=== PATIENT | male | born 1970 | race African-American/Black ===

== ENCOUNTER 2020-10-16 14:14 | Observation (INO) | payer OTHER ==
--- OUTSIDE RECORDS SUMMARY | 2020-10-16 14:20 | XMS REPORT | Continuity of Care Document ---
:1970 Author Organization [facility] t Address [address] [place] [address] Care Team Providers Name Role Phone Unavailable Unavailable Unavailable Payers Payer Name Policy Type Policy Number Effective Date Expiration Date S ource Problems This patient has no known problems. Allergies, Adverse Reactions, Alerts This patient has no known allergies or adverse reactions. Medications This patient has no known medications. Procedures This patient has no known procedures. Results This patient has no known results.
[2020-10-16 14:42] LABS: Arterial Blood Carboxyhemoglob 1.2 % (0-1.5); Blood Gas Oxyhemoglobin 91.5 % (94-97); Blood O2 Saturation 94.3 % (92-98.5)
[2020-10-16 14:50] LABS: Absolute Lymphocytes (CBC) 2.6 K/uL (0.7-4.9); Basophils % 1.3 % (0-1.3); Hematocrit 41.6 % (39.6-49.0); Lymphocytes % 26.5 % (15.3-44.8); MPV 10.3 fL (7.6-11.3); RBC Red Blood Cell Count 4.98 M/uL (4.33-5.43)
[2020-10-16] MEDS ORDERED: NA CHLORIDE 0.9% 1,000 ML ONE ×3 (15:04→18:27)
[2020-10-16 15:17] LABS: BUN Blood Urea Nitrogen 39 mg/dL (7-18); Bicarbonate 20 mmol/L (21-32); Potassium 4.4 mmol/L (3.5-5.1); Sodium Level 129 mmol/L (136-145)
[2020-10-16 15:18] LABS: Glucose Level 422 mg/dL (74-106)
--- NOTE | 2020-10-16 15:30 | EDPHYS ---
Physician Documentation [facility] Name: Gavin Lu Age: 49 yrs Sex: Male : 1970 Arrival Date: 10/16/2020 Time: 14:16 Bed 26 Private MD: ED Physician Casa Rodriguez HPI: 10/16 16:27 This 49 yrs old Black Male presents to ER via Ambulatory with complaints of Abnormal kb Lab Results. 16:27 The patient or guardian reports hyperglycemia. Onset: The symptoms/episode kb began/occurred 4 day(s) ago. Associated signs and symptoms: Pertinent positives: None. Current symptoms: In the emergency department the patient's symptoms are unchanged from the initial presentation. The patient has not experienced similar symptoms in the past. The patient has been recently seen by a physician: the patient's primary care provider, with similar presenting complaints, and was sent to the [facility] Emergency Department for further evaluation. Pt reports his sugar has been high for the last 3-4 days. States it was in the 600s, then 300s, then 500s. Went to Dr Pelaez's office today for this reason and was sent to the ER for further eval and admission. Historical: - Allergies: 14:29 No Known Allergies; sv - Home Meds: 16:56 metformin 500 mg oral tab 2 times per day [Active]; lisinopril 10 mg oral tab once sv daily [Active]; fenofibrate oral 145 mg daily oral [Active]; ozempic 0.5 mg SQ Q7days [Active]; - PMHx: 14:29 Diabetes - IDDM; Hypertension; High Cholesterol; sv - PSHx: 14:29 None; sv - Immunization history:: Adult Immunizations up to date. - Social history:: Smoking status: . ROS: 16:24 Constitutional: Negative for fever, chills, and weight loss, Cardiovascular: Negative kb for chest pain, palpitations, and edema, Respiratory: Negative for shortness of breath, cough, wheezing, and pleuritic chest pain, Abdomen/GI: Negative for abdominal pain, nausea, vomiting, diarrhea, and constipation, Back: Negative for injury and pain, MS/Extremity: Negative for injury and deformity, Skin: Negative for injury, rash, and discoloration, Neuro: Negative for headache, weakness, numbness, tingling, and seizure. 16:24 Endocrine: Positive for hypreglycemia. Exam: 16:26 Constitutional: This is a well developed, well nourished patient who is awake, alert, kb and in no acute distress. Head/Face: Normocephalic, atraumatic. Chest/axilla: Normal chest wall appearance and motion. Nontender with no deformity. No lesions are appreciated. Cardiovascular: Regular rate and rhythm with a normal S1 and S2. No gallops, murmurs, or rubs. Normal PMI, no JVD. No pulse deficits. Respiratory: Lungs have equal breath sounds bilaterally, clear to auscultation and percussion. No rales, rhonchi or wheezes noted. No increased work of breathing, no retractions or nasal flaring. Abdomen/GI: Soft, non-tender, with normal bowel sounds. No distension or tympany. No guarding or rebound. No evidence of tenderness throughout. Skin: Warm, dry with normal turgor. Normal color with no rashes, no lesions, and no evidence of cellulitis. MS/ Extremity: Pulses equal, no cyanosis. Neurovascular intact. Full, normal range of motion. Neuro: Awake and alert, GCS 15, oriented to person, place, time, and situation. Cranial nerves II-XII grossly intact. Motor strength 5/5 in all extremities. Sensory grossly intact. Cerebellar exam normal. Normal gait. Vital Signs: 14:26 BP 125 / 88; Pulse 120; Resp 20; Temp 98.3; Pulse Ox 97% ; Weight 87.54 kg; Height 5 sv ft. 4 in. (162.56 cm); 15:09 BP 113 / 81; Pulse 112 MON; Resp 17; Pulse Ox 99% on R/A; sv 16:00 BP 98 / 56; Pulse 103 MON; Resp 14; Pulse Ox 100% on R/A; sv 16:57 BP 110 / 74; Pulse 102 MON; Resp 18; Pulse Ox 100% on R/A; sv 14:26 Body Mass Index 33.13 (87.54 kg, 162.56 cm) sv 15:09 Sinus tachycardia sv 16:00 Sinus tachycardia sv 16:57 Sinus tachycardia sv MDM: 14:26 Patient medically screened. kb 15:26 Data reviewed: vital signs, nurses notes. Data interpreted: Pulse oximetry: on room air kb is 99 %. Interpretation: normal. Counseling: I had a detailed discussion with the patient and/or guardian regarding: the historical points, exam findings, and any diagnostic results supporting the discharge/admit diagnosis, lab results, the need for further work-up and treatment in the hospital. Physician consultation: Helga Collins MD was contacted at 15:27, regarding admission, to the ICU, patient's condition, and will see patient in ED, shortly. 10/16 14:29 Order name: CBC with Diff 10/16 14:29 Order name: Basic Metabolic Panel 10/16 14:29 Order name: Acetone, Serum; Complete Time: 15:21 kb 10/16 14:29 Order name: ABG; Complete Time: 14:58 kb 10/16 14:30 Order name: CBC with Automated Diff; Complete Time: 14:58 ED[facility] 10/16 14:30 Order name: Basic Metabolic Panel; Complete Time: 15:21 ED[facility] 10/16 15:28 Order name: Lactate; Complete Time: 16:24 [facility] 10/16 15:32 Order name: CBC with Automated Diff [facility] 10/16 15:32 Order name: Comprehensive Metabolic Panel [facility] 10/16 15:32 Order name: Magnesium [facility] 10/16 15:32 Order name: NT PRO-BNP [facility] 10/16 15:32 Order name: Phosphorus [facility] 10/16 15:32 Order name: Hemoglobin A1c [facility] 10/16 16:28 Order name: Urine Dipstick--Ancillary (enter results) 10/16 14:29 Order name: EKG; Complete Time: 14:30 kb 10/16 15:34 Order name: CONS Pharmacy Consult [facility] 10/16 15:34 Order name: Consistent Carb (ADA) 1800 Rebel [facility] 10/16 17:12 Order name: Urine Dipstick-Ancillary; Complete Time: 17:13 [facility] 10/16 17:14 Order name: Glucose, Ancillary Testing; Complete Time: 17:14 [facility] 10/16 18:12 Order name: Glucose, Ancillary Testing; Complete Time: 18:22 [facility] 10/16 19:26 Order name: COVID-19 rr5 10/16 20:16 Order name: CORONAVIRUS [facility] 10/16 20:26 Order name: Glucose, Ancillary Testing; Complete Time: 20:27 [facility] 10/16 21:48 Order name: SARS-COV-2 RT PCR; Complete Time: 21:52 ED[facility] 10/16 22:43 Order name: Glucose, Ancillary Testing [facility] 10/17 05:35 Order name: Glucose, Ancillary Testing [facility] 10/17 08:21 Order name: Glucose, Ancillary Testing [facility] 10/16 14:29 Order name: IV Start; Complete Time: 14:51 kb 10/16 14:29 Order name: Urine Dipstick-Ancillary (obtain specimen); Complete Time: 16:16 kb 10/16 14:29 Order name: EKG - Nurse/Tech; Complete Time: 14:51 kb Administered Medications: 14:51 Drug: NS 0.9% 1000 ml Route: IV; Rate: 1000 ml; Site: left antecubital; sv 16:12 Follow up: Response: No adverse reaction; IV Status: Completed infusion; IV Intake: sv 1000ml 16:10 Drug: Insulin Drip - (Insulin Regular Human 100 units, NS 0.9% 100 ml) {Co-Signature: son ss (Moira Woodard RN).} Route: IV; Rate: calculated rate; Site: left antecubital; 16:12 Drug: NS 0.9% 1000 ml Route: IV; Rate: 1000 ml; Site: left antecubital; sv Disposition: 10/16/20 15:29 Hospitalization ordered by Helga Collins for Inpatient Admission. Preliminary diagnosis is Diabetes mellitus due to underlying condition with ketoacidosis without coma. - Bed requested for [facility] ER HOLD. - Status is Inpatient Admission. em1 - Condition is Stable. - Problem is new. - Symptoms are unchanged. Addendum: 10/22/2020 19:45 Co-signature as Attending Physician, Casa Rodriguez MD. r n Signatures: Dispatcher [employer] EDWV Deidra Franco, LOBSTERMAN-C LOBSTERMAN-Yoanna Jones RN Casa Maddox MD MD rn Martinez, Eric em1 Ruma Cook RN ss Corrections: (The following items were deleted from the chart) 10/16 15:30 15:29 Hospitalization Ordered by Helga Collins MD for Inpatient Admission. Preliminary eb diagnosis is Diabetes mellitus due to underlying condition with ketoacidosis without coma. Bed requested for Intensive Care Unit. Status is Inpatient Admission. Condition is Stable. Problem is new. Symptoms are unchanged. kb 16:56 14:29 Home Meds: Metformin Oral; sv sv 16:56 14:29 Home Meds: Lisinopril Oral; sv sv 10/17 10:51 10/16 15:30 10/16/2020 15:29 Hospitalization Ordered by Helga Collins MD for Inpatient em1 Admission. Preliminary diagnosis is Diabetes mellitus due to underlying condition with ketoacidosis without coma. Bed requested for [facility] ER HOLD. Status is Inpatient Admission. Condition is Stable. Problem is new. Symptoms are unchanged. eb
--- NOTE | 2020-10-16 15:30 | ER ---
Nurse's Notes [facility] Name: Gavin Lu Age: 49 yrs Sex: Male : 1970 Arrival Date: 10/16/2020 Time: 14:16 Bed 26 Private MD: Diagnosis: Diabetes mellitus due to underlying condition with ketoacidosis without coma Presentation: 10/16 14:26 Chief complaint: Patient states: sent by Dr Pelaez for DKA. Coronavirus screen: Client sv denies travel out of the [place] in the last 14 days. At this time, the client does not indicate any symptoms associated with coronavirus-19. Ebola Screen: No symptoms or risks identified at this time. Risk Assessment: Do you want to hurt yourself or someone else? Patient reports no desire to harm self or others. Onset of symptoms was October 16, 2020. 14:26 Method Of Arrival: Ambulatory sv 14:26 Acuity: NICHOLAS 2 sv 14:26 Initial Sepsis Screen: Does the patient meet any 2 criteria? HR > 90 bpm. No. Patient's sv initial sepsis screen is negative. Does the patient have a suspected source of infection? No. Patient's initial sepsis screen is negative. Historical: - Allergies: 14:29 No Known Allergies; sv - Home Meds: 16:56 metformin 500 mg oral tab 2 times per day [Active]; lisinopril 10 mg oral tab once sv daily [Active]; fenofibrate oral 145 mg daily oral [Active]; ozempic 0.5 mg SQ Q7days [Active]; - PMHx: 14:29 Diabetes - IDDM; Hypertension; High Cholesterol; sv - PSHx: 14:29 None; sv - Immunization history:: Adult Immunizations up to date. - Social history:: Smoking status: . Screenin:29 Abuse screen: Denies threats or abuse. Denies injuries from another. Nutritional sv screening: No deficits noted. Tuberculosis screening: No symptoms or risk factors identified. Fall Risk None identified. Assessment: 14:35 General: Appears in no apparent distress. comfortable, well groomed, well developed, sv Behavior is calm, cooperative, appropriate for age. Pain: Denies pain. Neuro: Level of Consciousness is awake, alert, obeys commands, Oriented to person, place, time, situation, Moves all extremities. Full function Gait is steady, Speech is normal. Cardiovascular: Patient's skin is warm and dry. Rhythm is sinus tachycardia. Respiratory: Airway is patent Respiratory effort is even, unlabored, Respiratory pattern is regular, symmetrical. Derm: Skin is intact, Skin is pink, warm \T\ dry. Musculoskeletal: Range of motion: intact in all extremities. 14:51 Reassessment: Patient appears in no apparent distress at this time. No changes from sv previously documented assessment. Patient and/or family updated on plan of care and expected duration. Pain level reassessed. Patient is alert, oriented x 3, equal unlabored respirations, skin warm/dry/pink. 16:00 Reassessment: Patient appears in no apparent distress at this time. No changes from sv previously documented assessment. Patient and/or family updated on plan of care and expected duration. Pain level reassessed. Patient is alert, oriented x 3, equal unlabored respirations, skin warm/dry/pink. 16:18 Reassessment: Spoke with Dr Collins on the phone. He stated to discontinue the Insulin sv drip once the BS is less than 200 and start NS \T\ 100 mls/hr. 16:57 Reassessment: Patient appears in no apparent distress at this time. No changes from sv previously documented assessment. Patient and/or family updated on plan of care and expected duration. Pain level reassessed. Patient is alert, oriented x 3, equal unlabored respirations, skin warm/dry/pink. Vital Signs: 14:26 BP 125 / 88; Pulse 120; Resp 20; Temp 98.3; Pulse Ox 97% ; Weight 87.54 kg; Height 5 sv ft. 4 in. (162.56 cm); 15:09 BP 113 / 81; Pulse 112 MON; Resp 17; Pulse Ox 99% on R/A; sv 16:00 BP 98 / 56; Pulse 103 MON; Resp 14; Pulse Ox 100% on R/A; sv 16:57 BP 110 / 74; Pulse 102 MON; Resp 18; Pulse Ox 100% on R/A; sv 14:26 Body Mass Index 33.13 (87.54 kg, 162.56 cm) sv 15:09 Sinus tachycardia sv 16:00 Sinus tachycardia sv 16:57 Sinus tachycardia sv ED Course: 14:16 Patient arrived in ED. ag5 14:21 Deid[facility]C [facility] kb 14:21 Casa Rodriguez MD is Attending Physician. kb 14:26 Yoanna Hernandez, STAS is Primary Nurse. sv 14:27 Triage completed. sv 14:29 Arm band placed on Patient placed in an exam room, on a stretcher. sv 14:29 Patient has correct armband on for positive identification. Placed in gown. Bed in low sv position. Call light in reach. pvc monitor on. Pulse ox on. NIBP on. Door closed. Head of bed elevated. 14:40 Inserted saline lock: 20 gauge in left antecubital area, using aseptic technique. Blood sv collected. Flushed left antecubital with 5 ml normal saline. 14:51 Basic Metabolic Panel Sent. sv 14:51 CBC with Diff Sent. sv 15:29 Helga Collins MD is Hospitalizing Provider. kb 16:05 Inserted saline lock: 20 gauge in right antecubital area, using aseptic technique. sv ,using aseptic technique. done by [employer]. 16:29 Urine Dipstick--Ancillary (enter results) Sent. sv 17:00 No provider procedures requiring assistance completed. Patient admitted, IV remains in sv place. intact. 19:07 Primary Nurse role handed off by Yoanna Hernandez, STAS sv 19:25 Stefano Owens, STAS is Primary Nurse. rr5 20:14 COVID swab sent to lab. jp3 Administered Medications: 14:51 Drug: NS 0.9% 1000 ml Route: IV; Rate: 1000 ml; Site: left antecubital; sv 16:12 Follow up: Response: No adverse reaction; IV Status: Completed infusion; IV Intake: sv 1000ml 16:10 Drug: Insulin Drip - (Insulin Regular Human 100 units, NS 0.9% 100 ml) {Co-Signature: sv ss (Moira Woodard RN).} Route: IV; Rate: calculated rate; Site: left antecubital; 16:12 Drug: NS 0.9% 1000 ml Route: IV; Rate: 1000 ml; Site: left antecubital; sv Intake: 16:12 IV: 1000ml; Total: 1000ml. sv Outcome: 15:29 Decision to Hospitalize by Provider. kb 17:00 Admitted to ER Hold. Please see [facility] for further documentation. sv 17:00 Condition: stable 17:00 Instructed on the need for admit. sv 10/17 10:51 Patient left the ED. em1 Signatures: Deidra Franco FNP-C FNP-Yoanna Jones RN RN Eren Fernandez em1 Jovanni Dalal jp3 Stefano Owens RN RN rr5 Gustavo Almanzar ag5 Moira Woodard RN ss Corrections: (The following items were deleted from the chart) 10/16 14: 14:26 BP 125 / 88; Pulse 120bpm; Pulse Ox 97%; Temp 98.3F; 87.54 kg; Height 5 ft. 4 sv in.; BMI: 33.1; sv 16:56 14:29 Home Meds: Metformin Oral; sv sv 16:56 14:29 Home Meds: Lisinopril Oral; sv sv
[2020-10-16] MEDS ORDERED: ONDANSETRON 4 MG/2 ML VIAL IV PRN (15:31)
[2020-10-16] MEDS ORDERED: MORPHINE 2 MG/ML SYR IV PRN (15:31)
[2020-10-16] MEDS ORDERED: ACETAMINOPHEN 500 MG TAB PO PRN (15:31)
[2020-10-16] MEDS ORDERED: D50W 25 GM/50 ML SYRINGE IV PRN ×3 (15:32→15:35)
[2020-10-16] MEDS ORDERED: GLUCAGON 1 MG/VIAL IM PRN ×4 (15:32→18:18)
[2020-10-16] MEDS ORDERED: INSULIN -REGULAR HUMAN 100 UNIT in NA CHLORIDE 0.9% 100 ML IV SCH (15:45)
[2020-10-16] MEDS ORDERED: INSULIN GLARGINE 100 UNITS/ML SQ ONE ×2 (16:00→18:24)
[2020-10-16] MEDS ORDERED: NA CHLORIDE 0.9% 1,000 ML IV SCH (16:00)
[2020-10-16] MEDS: INSULIN -REGULAR HUMAN 50 UNIT/0.5 ML ML SQ SCH ×2 (16:30→20:24)
[2020-10-16 17:05] VITALS: BMI 32.9
[2020-10-16 17:11] LABS: Urine Blood NEGATIVE (NEG); Urine Glucose 2+ (NEG); Urine Protein NEGATIVE (NEG)
[2020-10-16] MEDS ORDERED: INFLUENZA VACCINE (for 3y+) 0.5 ML DOSE IMVAC ONE (18:00)
[2020-10-16] MEDS: NA CHLORIDE 0.9% 1,000 ML IV SCH (18:20)
[2020-10-16] MEDS ORDERED: INSULIN -REGULAR HUMAN 50 UNIT/0.5 ML ML ONE (20:35)
[2020-10-17] MEDS: NA CHLORIDE 0.9% 1,000 ML IV SCH (05:00)
[2020-10-17 05:07] LABS: Absolute Lymphocytes (CBC) 1.8 K/uL (0.7-4.9); Basophils % 1.1 % (0-1.3); Hematocrit 34.2 % (39.6-49.0); Lymphocytes % 38.7 % (15.3-44.8); MPV 10.4 fL (7.6-11.3); RBC Red Blood Cell Count 4.15 M/uL (4.33-5.43)
[2020-10-17 05:26] VITALS: BP 119/63; TEMP 98.2
[2020-10-17] MEDS ORDERED: NA CHLORIDE 0.9% 1,000 ML ONE (05:27)
[2020-10-17 05:32] LABS: Albumin 3.1 g/dL (3.4-5.0); Bilirubin Total 0.7 mg/dL (0.2-1.0); Magnesium 2.5 mg/dL (1.8-2.4); Potassium 3.9 mmol/L (3.5-5.1); Protein, Total 6.6 g/dL (6.4-8.2)
[2020-10-17] MEDS: INSULIN -REGULAR HUMAN 50 UNIT/0.5 ML ML SQ SCH (07:30)
--- NOTE | 2020-10-17 07:35 | P.HP ---
Certification for Inpatient Patient admitted to: Observation With expected LOS: <2 Midnights Patient will require the following post-hospital care: None Practitioner: I am a practitioner with admitting privileges, knowledge of patient current condition, hospital course, and medical plan of care. Services: Services provided to patient in accordance with Admission requirements found in Title 42 Section 412.3 of the Code of Federal Regulations Patient History Date of Service: 10/16/20 Reason for admission: Diabetic ketoacidosis History of Present Illness: Patient is a 41-year-old gentleman who has a history of diabetic ketoacidosis who came into the hospital with elevated acetone levels. Patient was told to stop his Levemir a few weeks ago. Patient has been on metformin and Ozempic. With his history of diabetic ketoacidosis, patient should be considered insulin dependent. Patient was restarted on insulin at this time. Will go ahead and mo nitor his labs closely. We should be able to correct his diabetic ketoacidosis fairly quickly and we will talk with patient about taking his Levemir. At this time monitor his labs closely and anticipate discharge home in the morning. Allergies No Known Allergies Allergy (Unverified 08/05/13 18:05) Home Medications: Fenofibrate [Tricor] 145 mg PO DAILY 10/16/20 Metformin HCl 500 mg PO BIDWM 10/16/20 Semaglutide [Ozempic] 0.5 mg SQ Q7D 10/16/20 lisinopriL [Prinivil*] 10 mg PO DAILY 10/16/20 - Past Medical/Surgical History Diabetic: Yes -: IDDM -: HTN -: High cholesterol Past Surgical History: Patient denies surgical history - Family History Father Family History: Reviewed- Non-Contributory - Social History Smoking Status: Unknown if ever smoked Alcohol use: Yes CD- Drugs: No Caffeine use: No Place of Residence: Home Review of Systems 10-point ROS is otherwise unremarkable Physical Examination - Vital Signs Temperature: 98.2 F Blood Pressure: 119/63 Pulse: 81 Respirations: 19 Pulse Ox (%): 98 - Physical Exam General: Alert, In no apparent distress, Oriented x3 HEENT: Atraumatic, PERRLA, Mucous membr. moist/pink, EOMI, Sclerae nonicteric Neck: Supple, 2+ carotid pulse no bruit, No LAD, Without JVD or thyroid abnormality Respiratory: Clear to auscultation bilaterally, Normal air movement Cardiovascular: Regular rate/rhythm, Normal S1 S2, No murmurs Gastrointestinal: Normal bowel sounds, Soft and benign, Non-distended, No tende rness Musculoskeletal: No clubbing, No swelling, No tenderness Integumentary: No rashes Neurological: Normal gait, Normal speech, Normal strength at 5/5 x4 extr, Normal tone, Sensation intact, Cranial nerves 3-12 intact, Normal affect Lymphatics: No axilla or inguinal lymphadenopathy - Studies Laboratory Data (last 24 hrs) 10/16/20 14:40: Sodium 129 L, Potassium 4.4, BUN 39 H, Creatinine 1.84 H, Glucose 422 H* 10/16/20 14:40: WBC 9.7, Hgb 13.5 L, Hct 41.6, Plt Count 368 Assessment & Plan - Problems (Diagnosis) (1) Diabetic ketoacidosis Current Visit: Yes Status: Acute - Plan 1. IV hydration 2. Insulin drip 3. Accu-Cheks q1h 4. Measure anion gap every 2 hrs 5. Resume diet once anion gap is closed and will resume insulin pump 6. Diabetic education 7. Long-acting insulin once patient able to tolerate diet and at that time will discontinue insulin drip Discharge Plan: Home Plan to discharge in: 24 Hours - Advance Directives Does patient have a Living Will: No Does patient have a Durable POA for Healthcare: No - Code Status/Comfort Care Code Status Assessed: Yes Code Status: Full Code Critical Care: No Time Spent Managing PTS Care (In Minutes): 40
--- NOTE | 2020-10-17 07:42 | P.DS ---
Discharge Date: 10/17/20 Disposition: ROUTINE DISCHARGE Discharge Condition: GOOD Reason for Admission: Diabetic ketoacidosis - Problems (1) Diabetic ketoacidosis Current Visit: Yes Status: Acute Brief History of Present Illness: Patient is a 41-year-old gentleman who has a history of diabetic ketoacidosis who came into the hospital with elevated acetone levels. Patient was told to stop his Levemir a few weeks ago. Patient has been on metformin and Ozempic. With his history of diabetic ketoacidosis, patient should be considered insulin dependent. Patient was restarted on insulin at this time. Will go ahead and monitor his labs closely. We should be able to correct his diabetic ketoacidosis fairly quickly and we will talk with patient about taking his Levemir. At this time monitor his labs closely and anticipate discharge home in the morning. Vital Signs/Physical Exam: Temp Pulse Resp BP Pulse Ox 98.2 F 81 19 119/63 98 10/17/20 07:34 10/17/20 07:34 10/17/20 07:34 10/17/20 07:34 10/17/20 07:34 Laboratory Data at Discharge: WBC 4.8 K/uL (4.3-10.9) D 10/17/20 04:40 Hgb 11.2 g/dL (13.6-17.9) L 10/17/20 04:40 Hct 34.2 % (39.6-49.0) L D 10/17/20 04:40 Plt Count 256 K/uL (152-406) D 10/17/20 04:40 Sodium 142 mmol/L (136-145) 10/17/20 04:40 Potassium 3.9 mmol/L (3.5-5.1) 10/17/20 04:40 BUN 25 mg/dL (7-18) H 10/17/20 04:40 Creatinine 1.10 mg/dL (0.55-1.3) 10/17/20 04:40 Glucose 196 mg/dL (74-106) H 10/17/20 04:40 Phosphorus 4.0 mg/dL (2.5-4.9) 10/17/20 04:40 Magnesium 2.5 mg/dL (1.8-2.4) H 10/17/20 04:40 Total Bilirubin 0.7 mg/dL (0.2-1.0) 10/17/20 04:40 AST 14 U/L (15-37) L 10/17/20 04:40 ALT 18 U/L (12-78) 10/17/20 04:40 Alkaline Phosphatase 51 U/L (45-117) 10/17/20 04:40 Home Medications: Fenofibrate [Tricor*] 145 mg PO DAILY 10/16/20 Metformin HCl 500 mg PO BIDWM 10/16/20 Semaglutide [Ozempic] 0.5 mg SQ Q7D 10/16/20 lisinopriL [Prinivil*] 10 mg PO DAILY 10/16/20 Insulin Detemir [Levemir] 20 units SQ Q12H #2 vial 10/17/20 New Medications: Insulin Detemir [Levemir] 20 units SQ Q12H #2 vial Patient Discharge Instructions: OK TO DC IV AND DC HOME. FOLLOW-UP WITH PRIMARY CARE PROVIDER IN 1-2 WEEKS. FOLLOW-UP WITH scowman IN 1-2 WEEKS. RETURN TO THE ER IF symptoms worsen. CALL or TEXT DR. WAGNER AT [phone] IF ANY QUESTIONS REGARDING HOSPITAL STAY. PLEASE CALL THE FLOOR AT [phone] IF ANY MEDICATION OR NURSING QUESTIONS. Diet: ADA Activity: Ad urvashi
[2020-10-17] MEDS ORDERED: INSULIN GLARGINE 100 UNITS/ML SQ SCH (08:00)
[2020-10-17] MEDS ORDERED: INSULIN -REGULAR HUMAN 50 UNIT/0.5 ML ML ONE (08:33)
[2020-10-17] MEDS ORDERED: INSULIN GLARGINE 100 UNITS/ML SQ ONE ×2 (08:34→18:18)
[2020-10-17 10:47] VITALS: O2SAT 96
--- NOTE | 2020-10-19 16:17 | EKG ---
Test Date: 2020-10-16 Test Time: 14:34:06 [employer] Winder: BIANKA MEASUREMENT RESULTS: Intervals: Rate: 113 AR: 154 QRSD: 80 QT: 310 QTc: 425 [place]: P: 49 AR: 154 QRS: 83 T: -5 INTERPRETIVE STATEMENTS: Sinus tachycardia Cannot rule out Anterior infarct, age undetermined T wave abnormality, consider inferior ischemia Abnormal ECG Compared to ECG 10/19/2016 17:40:32 Myocardial infarct finding now present T-wave abnormality now present Possible ischemia now present Sinus rhythm no longer present Electronically Signed On 10-19-20 16:10:18 [employer]AUTY [employer]OR CLEAN[employer] by Michael Gresham
== END 2020-10-17 10:10 | disposition home or self-care (01) ==
LOC: ER 14:14 → ERHOLD 16:17
PROVIDERS: ADMIT Hospitalist; ATTEND Hospitalist
DX: E11.10 Type 2 diabetes mellitus with ketoacidosis without coma (principal); Z20.828 Contact with and (suspected) exposure to other viral communicable diseases; R94.31 Abnormal electrocardiogram [ECG] [EKG]; I10 Essential (primary) hypertension; E78.00 Pure hypercholesterolemia, unspecified; Z79.4 Long term (current) use of insulin
CPT/HCPCS: 96361; 93005; 85025 ×2; 80048; 36415; 82010; 83735; 84100; 82947 ×6; 83605; 81003; 83036; 80053; 83880; 82805; 96374; 99285; U0003; J1815 ×2; J7030 ×4